=== PATIENT | male | born 1945 | race Caucasian/White ===

== ENCOUNTER 2022-08-14 07:13 | Outpatient (CLI) | payer MEDICARE | END 2022-08-14 07:14 | disposition home or self-care (01) | LOC: ULT 07:13 | PROVIDERS: ATTEND Internal Medicine Cardiovascular Disease | DX: K76.89 Other specified diseases of liver (principal); N28.1 Cyst of kidney, acquired | CPT/HCPCS: 76705 ==

== ENCOUNTER 2023-04-23 09:25 | Outpatient (CLI) | payer MEDICARE ==
[2023-04-23] MEDS ORDERED: Magnevist 469MG/ML 20 ML VIAL ONE (09:38)
== END 2023-04-23 09:26 | disposition home or self-care (01) ==
LOC: MRI 09:25
PROVIDERS: ATTEND Internal Medicine Gastroenterology
DX: R74.01 Elevation of levels of liver transaminase levels (principal); K76.89 Other specified diseases of liver; R93.2 Abnormal findings on diagnostic imaging of liver and biliary tract; K83.09 Other cholangitis; N28.1 Cyst of kidney, acquired; K83.8 Other specified diseases of biliary tract
CPT/HCPCS: 74183; 82565